=== PATIENT | male | born 1990 | race Two or more races ===

== ENCOUNTER 2017-01-15 19:16 | Emergency (ER) | payer SELFPAY ==
[2017-01-15] MEDS ORDERED: DIPHTH,PERTUSS(ACELL),TET VAC 0.5 ML VIAL IM V ONE (19:50)
[2017-01-15] MEDS ORDERED: IBUPROFEN 800 MG TABLET ONE (19:55)
--- NOTE | 2017-01-15 19:57 | RAD ---
Name: BOOGIE HENAOJASMYN WATERLOO Exam: Right hand Comparison: None Clinical history: Trauma. Right hand pain. Findings: 3 views right hand are submitted bone density is normal. There is a comminuted impacted intra-articular fracture of the head and neck of the right fifth metacarpal. There is mild angulation deformity. There is no dislocation. Remainder the bones and soft tissues are unremarkable Impression: Acute comminuted impacted mildly angulated and displaced intra-articular fracture of the head and neck of the distal right fifth metacarpal
== END 2017-01-15 20:13 | disposition home or self-care (01) ==
LOC: ED 19:16
DX: S62.521A Displaced fracture of distal phalanx of right thumb, initial encounter for closed fracture (principal); Z23 Encounter for immunization; W22.8XXA Striking against or struck by other objects, initial encounter; Y92.9 Unspecified place or not applicable